=== PATIENT | male | born 1950 | race Caucasian/White ===

== ENCOUNTER 2019-11-01 05:04 | Emergency (ER) | payer OTHER ==
[2019-11-01] MEDS ORDERED: Acetaminophen 500 MG TAB ONE (05:37)
[2019-11-01] MEDS ORDERED: Azithromycin 500 MG VIAL ONE (05:37)
[2019-11-01 05:51] LABS: #Monocytes 0.4 thou/uL (0.11-0.59); #Neutrophils 2.5 thou/uL (1.40-6.50); %Basophils 0.5 % (0.0-1.0); %Eosinophils 0.2 % (0.0-10.0); %Lymphocytes 26.6 % (21.0-51.0); %Monocytes 9.4 % (0.0-10.0); %Neutrophils 63.2 % (42.0-75.0); Mean Corpuscular HGB CONC 35.4 g/dL (32.0-36.0); Mean Corpuscular Hemoglobin 33.7 pg (27.0-31.0); Mean Corpuscular Volume 94.9 fL (78.0-98.0); Mean Platelet Volume 6.9 fL (7.4-10.4); Platelet Count 219 thou/uL (130-400); RBC Distribution Width 11.7 % (11.5-14.5); Red Blood Cell (RBC) Count 4.16 mill/uL (4.70-6.10); White Blood Cell (WBC) Count 3.9 thou/uL (4.8-10.8)
[2019-11-01 05:54] LABS: Bilirubin Negative (Negative); Blood, Urine Negative (Negative); Clarity Clear (Clear); Glucose, Urine (Dipstick) Normal (Negative); Leukocyte Negative Leu/uL (Negative); Nitrite Negative (Negative); Protein, Urine (Dipstick) 10 mg/dL (Neg-Trace); Urobilinogen Normal mg/dL (Less than 2)
[2019-11-01 06:20] LABS: ALT (SGPT) 40 U/L (8-55); AST (SGOT) 38 U/L (5-34); Alkaline Phosphatase 45 U/L (40-110); Anion Gap 14 mmol/L (10-20); BUN (Urea Nitrogen) 15 mg/dL (8.4-25.7); Bilirubin, Total 0.3 mg/dL (0.2-1.2); Calc. Creatinine Clearance 0 mL/min (70-130); Calcium 8.3 mg/dL (7.8-10.44); Carbon Dioxide 20 mmol/L (23-31); Chloride 106 mmol/L (98-107); Estimated GFR-MDRD 68; Globulin 3.1 g/dL (2.4-3.5); Glucose 95 mg/dL (80-115); Potassium 4.1 mmol/L (3.5-5.1); Protein, Total 7.1 g/dL (5.8-8.1); Sodium 136 mmol/L (136-145)
--- NOTE | 2019-11-01 08:01 | RAD ---
PORTABLE CHEST: Date: 11/01/2019 HISTORY: Shortness of breath and cough. FINDINGS: Heart size and mediastinum are within normal limits. There is some slight increased density in the ri ght base, I feel is most likely just related to overlap of rib and vascular structures. IMPRESSION: No definitive infiltrates. Questionable changes in the right base. It may be helpful to obtain a PA a nd lateral chest if a basilar infiltrate on the right is suspected. POS: [facility]
--- NOTE | 2019-11-01 14:35 | EKG ---
Test Reason : Blood Pressure : / mmHG Vent. Rate : 100 BPM Atrial Rate : 100 BPM P-R Int : 150 ms QRS Dur : 070 ms QT Int : 320 ms P-R-T Axes : 040 066 075 degrees QTc Int : 412 ms Normal sinus rhythm Normal ECG Confirmed by KANE JONES, SHWETHA Rangel ([id number]), associate entertainment editor OSMIN BANKS ([id number]) on 11/01/2019 2:35:18 PM Referred By: Confirmed By:SHWETHA MIDDLETON MD
== END 2019-11-01 10:13 | disposition short-term general hospital (02) ==
LOC: ERS 05:04
DX: J18.9 Pneumonia, unspecified organism (principal); Z20.828 Contact with and (suspected) exposure to other viral communicable diseases; I25.2 Old myocardial infarction; E03.9 Hypothyroidism, unspecified; J44.9 Chronic obstructive pulmonary disease, unspecified; Z79.899 Other long term (current) drug therapy
CPT/HCPCS: 71045; 80053; 81003; 83605; 85025; 87040; 93005; 94760; 96365; J0456